=== PATIENT | male | born 1985 | race African-American/Black ===

== ENCOUNTER 2019-12-10 12:25 | Emergency (ER) | payer OTHER ==
[~2019-12-10] VITALS: Ht 167.6 cm; Wt 65.0 kg
[2019-12-10] MEDS ORDERED: KETOROLAC 60MG/2ML VIAL IM ONE (13:15)
[2019-12-10 15:20] VITALS: BP 131/68
== END 2019-12-10 15:22 | disposition home or self-care (01) ==
LOC: ER 12:46
DX: R07.89 Other chest pain (principal)
CPT/HCPCS: 71045; 96372; 99285; J1885